=== PATIENT | male | born 1960 | race Caucasian/White ===

== ENCOUNTER → 2017-01-05 | Outpatient (CLI) | payer OTHER ==
--- NOTE | 2017-01-05 17:00 | US ---
EXAMINATION TYPE: US carotid duplex BILAT DATE OF EXAM: 01/05/2017 COMPARISON: NONE CLINICAL HISTORY: R42 Dizziness. EXAM MEASUREMENTS: RIGHT: Peak Systolic Velocity (PSV) cm/sec ----- Right CCA: 80.1 ----- Right ICA: 123.7 ----- Right ECA: 175.6 ICA/CCA ratio: 1.5 RIGHT: End Diastole cm/sec ----- Right CCA: 22.0 ----- Right ICA: 51.0 ----- Right ECA: 33.9 LEFT: Peak Systolic Velocity (PSV) cm/sec ----- Left CCA: 79.0 ----- Left ICA: 103.0 ----- Left ECA: 109.5 ICA/CCA ratio: 1.3 LEFT: End Diastole cm/sec ----- Left CCA: 19.2 ----- Left ICA: 42.2 ----- Left ECA: 17.6 VERTEBRALS (direction of flow): Right Vertebral: Antegrade Left Vertebral: Antegrade Mild amount of plaque visualized bilaterally. Elevated velocity visualized in the right ECA. IMPRESSION: There is antegrade flow in the vertebral arteries. 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 There is 20-25% stenosis of both internal c arotid arteries. Criteria for Assigning % of Stenosis / Diameter reduction (Estimation based on the indirect measurements of the internal carotid artery velocities (ICA PSV). 1. Normal (no stenosis)=ICA PSV < 125 cm/s: ratio < 2.0: ICA EDV<40 cm/s. 2. Less than 50% stenosis=ICA PSV < 125 cm/s: ratio < 2.0: ICA EDV<40 cm/s. 3. 50 to 69% stenosis=ICA PSV of 125 to 230 cm/s: ration 2.0 ? 4.0: ICA EDV 40-100 cm/s. 4. Greater than 70% stenosis to near occlusion= ICA PSV > 230 cm/s: ratio > 4.0: ICA EDV > 100 cm/s. 5. Near occlusion= ICA PSV velocities may be low or undetectable: variable ratio and ICA EDV. 6. Total occlusion=unable to detect flow.
== END | disposition home or self-care (01) ==
LOC: RADUSWWP 16:32
PROVIDERS: ATTEND Psychiatry & Neurology Neurology
DX: I65.23 Occlusion and stenosis of bilateral carotid arteries (principal)
CPT/HCPCS: 93880

== ENCOUNTER 2017-06-01 08:41 | Day surgery (SDC) | payer OTHER ==
[2017-06-01] MEDS ORDERED: ALPRAZolam 0.5 MG TAB PO ONE (08:48)
[2017-06-01 09:10] VITALS: RESP 20; TEMP 97.9
[2017-06-01 09:20] LABS: INR 1.2 (<1.2); Mean Platelet Volume 8.3; Platelet Count 129 k/uL (150-450); Prothrombin Time 11.6 sec (9.0-12.0)
[2017-06-01] MEDS ORDERED: HYDROmorphone 2 MG/ML 1 ML SYRINGE IVP STA ×3 (09:39→11:15)
--- NOTE | 2017-06-01 11:04 | CT ---
EXAMINATION TYPE: CT biopsy liver DATE OF EXAM: 06/01/2017 COMPARISON: NONE HISTORY: Elevated LFTs CT DLP: 3146mGycm The procedure was explained to the patient. The risks, complications, benefits, and alternatives wer e discussed and any questions were answered. Informed consent was obtained. Patient was placed supi ne on the CT table and prepped and draped in the usual sterile fashion. All elements of maximal barrier and sterile technique utilized. Utilizing CT guidance, an 18 gauge core biopsy needle access into the right lobe of the liver was ac hieved and a single 18 gauge core sample was obtained. The patient was stable throughout the procedu re and remained stable upon discharge. IMPRESSION: 1. Successful 18 gauge core biopsy of the liver.
[2017-06-01 11:09] VITALS: PULSE 70
[2017-06-01 14:43] VITALS: BP 157/88
== END 2017-06-01 13:50 | disposition home or self-care (01) ==
LOC: RADPROMAIN 08:41
DX: K74.60 Unspecified cirrhosis of liver (principal); K75.81 Nonalcoholic steatohepatitis (NASH)
CPT/HCPCS: 85049; 85610; 88313; 88307; 96374; 36415; 47000; 77012; J1170

== ENCOUNTER → 2019-03-30 | Outpatient (CLI) | payer OTHER ==
--- NOTE | 2019-03-30 10:28 | ECHOF ---
Referral Reason:R60.0 localized edema MEASUREMENTS -------- HEIGHT: 175.3 cm WEIGHT: 68.0 kg BP: RVIDd: 3.0 cm (< 3.3) IVSd: 1.2 cm (0.6 - 1.1) LVIDd: 3.0 cm (3.9 - 5.3) LVPWd: 1.3 cm (0.6 - 1.1) IVSs: 1.5 cm LVIDs: 1.9 cm LVPWs: 1.6 cm LAESV Index (A-L): 18.58 ml/m Ao Diam: 2.8 cm (2.0 - 3.7) AV Cusp: 2.2 cm (1.5 - 2.6) LA Diam: 2.6 cm (2.7 - 3.8) MV EXCURSION: 15.488 mm (> 18.000) MV EF SLOPE: 80 mm/s (70 - 150) EPSS: 0.5 cm MV E Claudio: 0.67 m/s MV DecT: 197 ms MV A Claudio: 0.75 m/s MV E/A Ratio: 0.90 RAP: 5.00 mmHg RVSP: 32.02 mmHg FINDINGS -------- Sinus rhythm. This was a technically good study. The left ventricular size is normal. There is mild concentric left ventricular hypertrophy. There is normal global left ventricular contractility. Overall left ventricular systolic function is nor mal with, an EF between 65 - 70 %. The diastolic filling pattern is normal for the age of the patie nt 8.75. The right ventricle is normal in size. Normal LA size by volume 22+/-6 ml/m2. The right atrial size is normal. Interatrial and interventricular septum intact. The aortic valve is trileaflet and appears structurally normal. There is mild aortic valve sclerosi s. There is no evidence of aortic regurgitation. There is no evidence of aortic stenosis. There is trace mitral regurgitation. Mild tricuspid regurgitation present. There is no evidence of pulmonary hypertension. The right v entricular systolic pressure, as measured by Doppler, is 32.02mmHg. There is no pulmonic regurgitation present. The aortic root size is normal. Normal inferior vena cava with normal inspiratory collapse consistent with estimated right atrial pre ssure of 5 mmHg. There is no pericardial effusion. CONCLUSIONS -------- 1. Sinus rhythm. 2. This was a technically good study. 3. The left ventricular size is normal. 4. There is mild concentric left ventricular hypertrophy. 5. There is normal global left ventricular contractility. 6. Overall left ventricular systolic function is normal with, an EF between 65 - 70 %. 7. The diastolic filling pattern is normal for the age of the patient 8.75 8. The right ventricle is normal in size. 9. Normal LA size by volume 22+/-6 ml/m2. 10. The right atrial size is normal. 11. Interatrial and interventricular septum intact. 12. The aortic valve is trileaflet and appears structurally normal. 13. There is mild aortic valve sclerosis. 14. There is no evidence of aortic regurgitation. 15. There is no evidence of aortic stenosis. 16. There is trace mitral regurgitation. 17. Mild tricuspid regurgitation present. 18. There is no evidence of pulmonary hypertension. 19. The right ventricular systolic pressure, as measured by Doppler, is 32.02mmHg. 20. There is no pulmonic regurgitation present. 21. The aortic root size is normal. 22. Normal inferior vena cava with normal inspiratory collapse consistent with estimated right atrial pressure of 5 mmHg. 23. There is no pericardial effusion. CUST[employer]S COMPLIANCE MANAGER: Rhiannon Fournier RDCS
== END | disposition home or self-care (01) ==
LOC: RADECHMAIN 08:05
PROVIDERS: ATTEND Family Medicine
DX: I07.1 Rheumatic tricuspid insufficiency (principal)
CPT/HCPCS: 93306

== ENCOUNTER 2020-01-24 07:11 | Day surgery (SDC) | payer OTHER ==
[~2020-01-24 07:11] MED LIST: LACTATED RINGERS 1,000 ML IV SCH; LIDOCAINE 1% (10MG/ML) FOR IV START INTRADERMA PRN
[2020-01-24 07:45] VITALS: RESP 16; TEMP 97.5
[2020-01-24 07:46] LABS: Glucose,Whole Blood 152 mg/dL (75-99)
[2020-01-24] MEDS ORDERED: PROPOFOL 10 MG/ML 20 ML VIAL IV ONE (07:58)
[2020-01-24] MEDS ORDERED: LIDOCAINE 1% INJ 10MG/ML (20 ML MDV) ONE (07:58)
--- NOTE | 2020-01-24 08:22 | P.PCN ---
Date of Procedure: 01/24/20 Procedure(s) Performed: BRIEF HISTORY: Patient is a 59-year-old pleasant white male scheduled for an elective colonoscopy as a part of screening for colorectal neoplasia. Last colonoscopy was 10 years ago. PROCEDURE PERFORMED: Colonoscopy. PREOPERATIVE DIAGNOSIS: Screening for colon cancer. IV sedation per Anesthesia. PROCEDURE: After informed consent was obtained, the patient, was brought into the endoscopy unit. IV sedation was administered by Anesthesia under continuous monitoring. Digital rectal examination was normal. Initially the Olympus CF-160 flexible video colonoscope was then inserted in the rectum, gradually advanced into the cecum without any difficulty. Careful examination was performed as the scope was gradually being withdrawn. Ileocecal valve and the appendiceal orifice were visualized and appeared normal. Prep was excellent. Mucosa of the cecum, ascending colon, transverse colon, descending colon, sigmoid colon, and rectum appeared normal. Scattered left-sided diverticulosis. Retroflexion was performed in the rectum and no lesions were seen. The patient tolerated the procedure well. IMPRESSION: Normal-appearing colon from rectum to cecum with no evidence of colorectal neoplasia Scattered left-sided diverticulosis. RECOMMENDATIONS: Findings of this examination were discussed with the patient as well as his family. He was advised to have a repeat screening colonoscopy in .
[2020-01-24 08:40] VITALS: BP 161/97; PULSE 87
== END 2020-01-24 08:58 | disposition home or self-care (01) ==
LOC: ORWHC2ENDO 07:11
PROVIDERS: ATTEND Internal Medicine Gastroenterology
DX: Z12.11 Encounter for screening for malignant neoplasm of colon (principal); K57.30 Diverticulosis of large intestine without perforation or abscess without bleeding; F17.200 Nicotine dependence, unspecified, uncomplicated; Z97.2 Presence of dental prosthetic device (complete) (partial); Z79.899 Other long term (current) drug therapy; Z79.891 Long term (current) use of opiate analgesic
CPT/HCPCS: J2001; J2704; G0121

== ENCOUNTER 2021-03-04 08:36 | Emergency (ER) | payer OTHER ==
[2021-03-04 09:05] VITALS: BP 159/99; PULSE 93; RESP 18; TEMP 98
--- NOTE | 2021-03-04 09:59 | ED ---
General Adult HPI - General Chief complaint: Abdominal Pain Stated complaint: pain across abd/back Time Seen by Provider: 03/04/21 09:21 Source: patient Mode of arrival: ambulatory Limitations: no limitations - History of Present Illness Initial comments: Dictation was produced using mi[employer] dictation software. please excuse any grammatical, word or spelling errors. Chief Complaint: 61-year-old male concerned about liver inflammation History of Present Illness: Patient is a 61-year-old male. He's been sober from alcohol for several days. He has history of liver disease secondary to alcoholism. Patient states he has mild right-sided abdominal and flank pain that radiates up into the right scapula. He states that he had symptoms similar to this when he was diagnosed with liver disease. He says he had a liver biopsy but does not know what his biopsy showed. Chart review shows that patient had cirrhosis on his biopsy. Patient states that his symptoms feel worse when he lies flat. Denies any constitutional symptoms. No nausea or vomiting. The ROS documented in this emergency department record has been reviewed and confirmed by me. Those systems with pertinent positive or negative responses have been documented in the HPI. All other systems are other negative and/or noncontributory. PHYSICAL EXAM: General Impression: Alert and oriented x3, not in acute distress HEENT: Normocephalic atraumatic, extra-ocular movements intact, pupils equal and reactive to light bilaterally, mucous membranes moist. Cardiovascular: Heart regular rate and rhythm Chest: Able to complete full sentences, no retractions, no tachypnea Abdomen: abdomen soft, non-tender, non-distended, no organomegaly Musculoskeletal: Pulses present and equal in all extremities, no peripheral edema Motor: no focal deficits noted Neurological: CN II-XII grossly intact, no focal motor or sensory deficits noted Skin: Intact with no visualized rashes Psych: Normal affect and mood ED course: 61-year-old well-appearing male past medical history of liver cirrhosis presents to the emergency department for right-sided flank pain. Patient states that his pain is worse with movement. Vital signs upon arrival are within acceptable limits. Laboratory evaluation obtained. CBC remarkable. Metabolic panel is negative. Serum alcohol is negative. Liver enzymes slightly elevated. Patient reevaluated at bedside at 11:15 AM found to be in stable medical condition. He is smiling well-appearing showing no signs of distress. Patient is agreeable to discharge. Return precautions discussed. He states that he has an appointment with his primary care doctor this week. Symptoms likely muscular skeletal nature. EKG interpretation: Ventricular rate 89, normal sinus rhythm, NC interval 160, QRS 84, QTc 442. No NC prolongation, no QTC prolongation, no ST or T-wave changes noted. No old EKG for comparison Overall, this EKG is unremarkable - Related Data Home Medications Medication Instructions Recorded Confirmed Gabapentin [Neurontin] 400 mg PO BID PRN 04/07/19 01/22/20 Magnesium 500 mg PO DAILY 04/07/19 01/22/20 Potassium 99 mg PO DAILY 04/07/19 01/22/20 Cholecalciferol [Vitamin D3 (25 1,000 unit PO DAILY 01/22/20 01/22/20 Mcg = 1000 Iu)] Cyclobenzaprine [Flexeril] 10 mg PO TID PRN 01/22/20 01/22/20 HYDROcodone/APAP 7.5-325MG [[place] 1 tab PO DAILY PRN 01/22/20 01/22/20 7.5-325] Sennosides-Docusate Sodium 1 tab PO DAILY 01/22/20 01/22/20 [Senokot-S] Allergies Allergy/AdvReac Type Severity Reaction Status Date / Time No Known Allergies Allergy Verified 03/04/21 09:05 Review of Systems ROS Statement: Those systems with pertinent positive or pertinent negative responses have been documented in the HPI. ROS Other: All systems not noted in ROS Statement are negative. Past Medical History Past Medical History: Diabetes Mellitus Additional Past Medical History / Comment(s): unexplained wt loss and having occas bleeding on tissue with stools,"hasn't been using any insulin in a month so I can drink beer",hx neuropathy parveen feet, constipation History of Any Multi-Drug Resistant Organisms: None Reported Additional Past Surgical History / Comment(s): colonoscopies, Surgeries on throat as child, unsure about what was cause Past Anesthesia/Blood Transfusion Reactions: No Reported Reaction Additional Past Anesthesia/Blood Transfusion Reaction / Comment(s): no previous blood transfusions Past Psychological History: No Psychological Hx Reported Smoking Status: Current every day smoker Past Alcohol Use History: Daily Past Drug Use History: Marijuana - Past Family History Sister(s) Family Medical History: Cancer Additional Family Medical History / Comment(s): cervical CA, liver cirrhosis, non-alcoholic Father Family Medical History: Cancer Additional Family Medical History / Comment(s): colon, prostate General Exam Limitations: no limitations Course Vital Signs 03/04/21 09:01 Temperature 98.0 F Pulse Rate 93 Respiratory 18 Rate Blood Pressure 159/99 O2 Sat by Pulse 100 Oximetry Medical Decision Making - Lab Data Result diagrams: 03/04/21 09:07 03/04/21 09:07 Lab Results 03/04/21 03/04/21 03/04/21 Range/Units 09:07 09:07 09:07 WBC 6.5 (3.8-10.6) k/uL RBC 4.19 L (4.30-5.90) m/uL Hgb 15.5 (13.0-17.5) gm/dL Hct 45.7 (39.0-53.0) % MCV 109.0 H (80.0-100.0) fL MCH 36.9 H (25.0-35.0) pg MCHC 33.9 (31.0-37.0) g/dL RDW 11.5 (11.5-15.5) % Plt Count 135 L (150-450) k/uL MPV 9.5 Neutrophils % 66 % Lymphocytes % 22 % Monocytes % 6 % Eosinophils % 2 % Basophils % 1 % Neutrophils # 4.3 (1.3-7.7) k/uL Lymphocytes # 1.4 (1.0-4.8) k/uL Monocytes # 0.4 (0-1.0) k/uL Eosinophils # 0.1 (0-0.7) k/uL Basophils # 0.0 (0-0.2) k/uL Macrocytosis Moderate Sodium 139 (137-145) mmol/L Potassium 4.2 (3.5-5.1) mmol/L Chloride 101 (98-107) mmol/L Carbon Dioxide 27 (22-30) mmol/L Anion Gap 11 mmol/L BUN 12 (9-20) mg/dL Creatinine 0.87 (0.66-1.25) mg/dL Est GFR (CKD-EPI)AfAm >90 (>60 ml/min/1.73 sqM) Est GFR (CKD-EPI)NonAf >90 (>60 ml/min/1.73 sqM) Glucose 189 H (74-99) mg/dL Calcium 10.2 (8.4-10.2) mg/dL Total Bilirubin 1.2 (0.2-1.3) mg/dL AST 63 H (17-59) U/L ALT 97 H (4-49) U/L Alkaline Phosphatase 97 (38-126) U/L Ammonia <9 (<30) umol/L Total Protein 8.1 (6.3-8.2) g/dL Albumin 4.6 (3.5-5.0) g/dL Lipase 61 (23-300) U/L Serum Alcohol <10 mg/dL Disposition Clinical Impression: Flank pain Disposition: HOME SELF-CARE Condition: Good Instructions (If sedation given, give patient instructions): Flank Pain (ED) Is patient prescribed a controlled substance at d/c from ED?: No Referrals: Suman Maldonado MD [Primary Care Provider] - 1-2 days
[2021-03-04 10:26] LABS: Basophils % (A) 1 %; Eosinophils # (A) 0.1 k/uL (0-0.7); Eosinophils % (A) 2 %; HCT 45.7 % (39.0-53.0); HGB 15.5 gm/dL (13.0-17.5); Lymphocytes # (A) 1.4 k/uL (1.0-4.8); Lymphocytes % (A) 22 %; MCH 36.9 pg (25.0-35.0); MCHC 33.9 g/dL (31.0-37.0); Macrocytosis Moderate; Mean Platelet Volume 9.5; Monocytes # (A) 0.4 k/uL (0-1.0); Monocytes % (A) 6 %; Neutrophils # (A) 4.3 k/uL (1.3-7.7); Neutrophils % (A) 66 %; Platelet Count 135 k/uL (150-450); RBC 4.19 m/uL (4.30-5.90); RDW 11.5 % (11.5-15.5); WBC 6.5 k/uL (3.8-10.6)
[2021-03-04 10:43] LABS: ALT 97 U/L (4-49); AST 63 U/L (17-59); African American GFR (CKD) >90 (>60 ml/min/1.73 sqM); Albumin 4.6 g/dL (3.5-5.0); Alcohol <10 mg/dL; Alkaline Phosphatase 97 U/L (38-126); Anion Gap 11 mmol/L; Blood Urea Nitrogen 12 mg/dL (9-20); Calcium 10.2 mg/dL (8.4-10.2); Carbon Dioxide 27 mmol/L (22-30); Chloride 101 mmol/L (98-107); Glucose 189 mg/dL (74-99); Lipase 61 U/L (23-300); Non-African American GFR(CKD) >90 (>60 ml/min/1.73 sqM); Potassium 4.2 mmol/L (3.5-5.1); Sodium 139 mmol/L (137-145); Total Bilirubin 1.2 mg/dL (0.2-1.3); Total Protein 8.1 g/dL (6.3-8.2)
== END 2021-03-04 11:32 | disposition home or self-care (01) ==
LOC: EC 08:36
DX: R10.9 Unspecified abdominal pain (principal); E11.9 Type 2 diabetes mellitus without complications; F17.200 Nicotine dependence, unspecified, uncomplicated; F12.90 Cannabis use, unspecified, uncomplicated
CPT/HCPCS: 99284; 36415; 93005; 80053; 82140; 83690; 85025; G0480; 80320

== ENCOUNTER → 2024-11-02 | Outpatient (CLI) | payer OTHER ==
--- NOTE | 2024-11-02 10:13 | US ---
EXAMINATION TYPE: US arterial LE single level DATE OF EXAM: 11/02/2024 9:39 AM COMPARISONS: None. CLINICAL INDICATION: Male, 64 years old with history of N39.9 DISORDER OF URINARY SYSTEM; Non healing wound bottom of left foot x 1 month TECHNIQUE: Systolic pressures were taken of the upper and lower extremity arteries with ankle-brachia l indices and toe brachial indices calculated bilaterally. History of: Smoker: yes Hypertension: no Diabetic: yes Hyperlipidemia: no TIA/CVA: no Previous Vascular Surgery: no [place]: no Vascular Ulcers: yes Claudication: no Gangrene: no FINDINGS: Doppler Waveforms: Right: Monophasic Left: Monophasic Brachial Artery systolic pressure: Right: 151 Left: 143 Posterior Tibial artery systolic pressure: Right: 73 Left: 89 Dorsalis Pedis artery systolic pressure: Right: 112 Left: 76 Toe artery systolic pressure: Right: 30 Left: 0 Ankle-Brachial Indices: Right: 0.74 Left: 0.59 Toe Brachial Indices: Right: 0.20 Left: 0.0 (Normal > 0.6; Mild 0.35 - 0.59, Moderate 0.12 - 0.34, Severe <0.12) IMPRESSION: ADAM: Right: Some Arterial Disease 0.7 - 0.8, , Recommendation: Treat Risk Factors Left: Moderate Arterial Disease 0.5-0.7, Recommendation: Refer to vascular specialist [facility], , 11/02/2024 10:11 AM
== END | disposition home or self-care (01) ==
LOC: RADUSWWP 08:40
PROVIDERS: ATTEND Podiatrist Foot & Ankle Surgery
DX: I73.9 Peripheral vascular disease, unspecified (principal); N39.9 Disorder of urinary system, unspecified; E11.9 Type 2 diabetes mellitus without complications; Z87.891 Personal history of nicotine dependence
CPT/HCPCS: 93923